=== PATIENT | male | born 1935 | race Caucasian/White ===

== ENCOUNTER → 2016-06-02 | Outpatient (CLI) | payer OTHER ==
[~2016-06-02] MED LIST: ALPHAGAN P100 DROP/5 RIGHT EYE; ASPIR-LOW81 MG PO; Cosopt 0.5% Ophth So RIGHT EYE; Coumadin,Jantoven PO; DIGITEK125 MC2 PO; DIGOX125 MCG PO; FUROSEMIDE20 MG PO; GLIPIZIDE5 MG PO; LATANOPROST2.5 ML RIGHT EYE; LOSARTAN POTASS50 MG PO; METRONIDAZOLE500 MG PO; MIRTAZAPINE15 MG PO; PANTOPRAZOLE SO40 MG PO; TOPROL XL100 MG PO; TRAVATAN Z5 ML BOTH EYES; Toprol XL PO; Vicodin,Norco 5/325 PO; ZOCOR40 MG PO; Zestril,Prinivil PO; Zocor PO
== END | disposition home or self-care (01) ==
LOC: RAD 12:21
PROC: 0W9G3ZZ Drainage of Peritoneal Cavity, Percutaneous Approach (ICD-10-PCS; principal; 2016-06-02)
DX: R18.8 Other ascites (principal)

== ENCOUNTER 2016-08-30 08:43 | Inpatient (IN) | payer OTHER ==
[~2016-08-30] VITALS: Ht 185.4 cm; Wt 63.5 kg
[~2016-08-30 08:43] MED LIST changes: -DELTASONE20 M1 PO; -FUROSEMIDE40 MG PO; -PROAIR HFA8.5 GM IH
[2016-08-30 09:45] LABS: EOSINOPHIL (%) 1.1 % (0-5); EOSINOPHIL COUNT 0.1 K/uL (0-0.3); HEMATOCRIT 29.4 % (38.0-50.0); IMMATURE GRANULOCYTE (%) 0.4 % (0.0-0.7); INSTRUMENT ABS NEUTROPHIL CT 5.9 K/uL; LYMPHOCYTE COUNT 0.5 K/uL (1.0-2.8); MCH 28.9 PG (29.0-34.0); MCHC 29.6 G/DL (30.0-36.0); MCV 97.7 FL (86-99); MEAN PLAT.VOLUME 10.4 uM^3 (9.0-12.4); MONOCYTE (%) 7.3 % (3-12); MONOCYTE COUNT 0.5 K/uL (0-0.8); NEUTROPHIL (%) 83.5 % (45-76); NEUTROPHIL COUNT 5.9 K/uL (1.8-6.4); PLATELET COUNT 158 K/uL (156-360); RBC DIS.WIDTH-CV 16.7 % (11.8-14.6); RBC DIS.WIDTH-SD 58.6 % (39-53); RED BLOOD COUNT 3.01 M/uL (4.00-5.50); WHITE BLOOD COUNT 7.1 K/uL (4.1-10.2)
[2016-08-30 09:54] LABS: CHLORIDE 106 mEq/L (99-109); POTASSIUM 4.8 mEq/L (3.7-5.4); SODIUM 141 mEq/L (136-147)
[2016-08-30 09:55] LABS: INTER. NORMALIZED RATIO 1.4; PROTHROMBIN TIME 13.9 (9.2-11.2); PTT 30.5 (25-32)
[2016-08-30 09:56] LABS: GLUCOSE 161 mg/dL (70-99)
[2016-08-30 09:57] LABS: ANION GAP 16 MEQ/L (2-14)
[2016-08-30 09:58] LABS: TOTAL BILIRUBIN 0.9 mg/dL (0.0-1.0)
[2016-08-30 10:00] LABS: ALKALINE PHOSPHATASE 61 IU/L (3-129); GFR ESTIMATE (CALCULATED) 14 mL/min/
[2016-08-30 10:01] LABS: UREA NITROGEN (BUN) 90 mg/dL (9-23)
[2016-08-30 10:09] LABS: TROP-I INTERPRETATION POSITIVE
[2016-08-30 10:35] LABS: DIGOXIN 2.2 ng/mL (0.8-2.0)
[2016-08-30] MEDS ORDERED: FUROSEMIDE40 MG PO (12:03)
[2016-08-30] MEDS ORDERED: PROAIR HFA8.5 GM IH (12:09)
[2016-08-30] MEDS ORDERED: DELTASONE20 M1 PO (12:11)
[2016-08-30 15:06] VITALS: BP 110/51
[2016-08-30 19:06] LABS: TROP-I INTERPRETATION POSITIVE; TROPONIN-I 1.92 ng/mL (0.0-0.30)
[2016-08-30 19:33] VITALS: BP 136/59
[2016-08-30 23:59] LABS: TROP-I INTERPRETATION POSITIVE; TROPONIN-I 1.75 ng/mL (0.0-0.30)
[2016-08-31] VITALS (10 sets, daily range): BP systolic 90–123; BP diastolic 44–57
[2016-08-31 06:41] LABS: MCH 28.9 PG (29.0-34.0); MCHC 29.6 G/DL (30.0-36.0); MCV 97.7 FL (86-99); MEAN PLAT.VOLUME 9.9 uM^3 (9.0-12.4); NRBC (%) 0.4 /100 WBC (0-0); PLATELET COUNT 119 K/uL (156-360); RBC DIS.WIDTH-CV 16.9 % (11.8-14.6); RBC DIS.WIDTH-SD 58.3 % (39-53); RED BLOOD COUNT 2.66 M/uL (4.00-5.50); WHITE BLOOD COUNT 5.4 K/uL (4.1-10.2)
[2016-08-31 07:07] LABS: ALKALINE PHOSPHATASE 44 IU/L (3-129); ANION GAP 14 MEQ/L (2-14); CHLORIDE 102 MEQ/L (99-109); CHLORIDE 103 MEQ/L (99-109); GFR ESTIMATE (CALCULATED) 13 mL/min/; GLUCOSE 140 mg/dL (70-99); GLUCOSE 142 mg/dL (70-99); POTASSIUM 4.4 MEQ/L (3.7-5.4); POTASSIUM 4.5 MEQ/L (3.7-5.4); SAMPLE HEMOLYSIS CHECK 0; SAMPLE ICTERIC CHECK 0; SAMPLE LIPEMIA CHECK 0; SODIUM 136 MEQ/L (136-147); SODIUM 137 MEQ/L (136-147); UREA NITROGEN (BUN) 86 mg/dL (9-23)
[2016-09-01] VITALS (7 sets, daily range): BP systolic 101–150; BP diastolic 48–69
[2016-09-01 06:44] LABS: EOSINOPHIL (%) 1.8 % (0-5); EOSINOPHIL COUNT 0.1 K/uL (0-0.3); HEMATOCRIT 32.8 % (38.0-50.0); IMMATURE GRANULOCYTE (%) 0.6 % (0.0-0.7); INSTRUMENT ABS NEUTROPHIL CT 3.9 K/uL; LYMPHOCYTE COUNT 0.6 K/uL (1.0-2.8); MCHC 29.6 G/DL (30.0-36.0); MCV 94.8 FL (86-99); MEAN PLAT.VOLUME 10.4 uM^3 (9.0-12.4); MONOCYTE (%) 8.2 % (3-12); MONOCYTE COUNT 0.4 K/uL (0-0.8); NEUTROPHIL (%) 77.6 % (45-76); NEUTROPHIL COUNT 3.9 K/uL (1.8-6.4); PLATELET COUNT 109 K/uL (156-360); RBC DIS.WIDTH-CV 18.7 % (11.8-14.6); RBC DIS.WIDTH-SD 61.5 % (39-53)
[2016-09-01 06:45] LABS: RED BLOOD COUNT 3.46 M/uL (4.00-5.50)
[2016-09-01 07:09] LABS: ALKALINE PHOSPHATASE 48 IU/L (3-129); ANION GAP 15 MEQ/L (2-14); ANION GAP 16 MEQ/L (2-14); CHLORIDE 102 MEQ/L (99-109); CHLORIDE 103 MEQ/L (99-109); GFR ESTIMATE (CALCULATED) 12 mL/min/; GLUCOSE 115 mg/dL (70-99); GLUCOSE 122 mg/dL (70-99); POTASSIUM 4.7 MEQ/L (3.7-5.4); SAMPLE HEMOLYSIS CHECK 0; SAMPLE ICTERIC CHECK 0; SAMPLE LIPEMIA CHECK 0; SODIUM 138 MEQ/L (136-147); UREA NITROGEN (BUN) 88 mg/dL (9-23); UREA NITROGEN (BUN) 92 mg/dL (9-23)
[2016-09-02] VITALS: BP 101/49
[2016-09-02 04:00] VITALS: BP 115/56
[2016-09-02 06:09] LABS: HEMATOCRIT 29.4 % (38.0-50.0); MCH 29.4 PG (29.0-34.0); MCV 91.9 FL (86-99); MEAN PLAT.VOLUME 10.3 uM^3 (9.0-12.4); PLATELET COUNT 104 K/uL (156-360); RBC DIS.WIDTH-CV 19.2 % (11.8-14.6); RBC DIS.WIDTH-SD 61.5 % (39-53); WHITE BLOOD COUNT 5.2 K/uL (4.1-10.2)
[2016-09-02 06:42] LABS: ANION GAP 14 MEQ/L (2-14); CHLORIDE 104 MEQ/L (99-109); GFR ESTIMATE (CALCULATED) 12 mL/min/; GLUCOSE 115 mg/dL (70-99); POTASSIUM 4.1 MEQ/L (3.7-5.4); SAMPLE HEMOLYSIS CHECK 0; SAMPLE ICTERIC CHECK 0; SAMPLE LIPEMIA CHECK 0; SODIUM 136 MEQ/L (136-147); UREA NITROGEN (BUN) 89 mg/dL (9-23)
[2016-09-02 06:44] LABS: ALKALINE PHOSPHATASE 43 IU/L (3-129); ANION GAP 13 MEQ/L (2-14); CHLORIDE 103 MEQ/L (99-109); GFR ESTIMATE (CALCULATED) 11 mL/min/; GLUCOSE 114 mg/dL (70-99); SAMPLE HEMOLYSIS CHECK 0; SAMPLE ICTERIC CHECK 0; SAMPLE LIPEMIA CHECK 0; SODIUM 134 MEQ/L (136-147); UREA NITROGEN (BUN) 89 mg/dL (9-23)
[2016-09-02 06:49] LABS: TOTAL BILIRUBIN 1.3 MG/DL (0.0-1.0)
[2016-09-02 06:57] VITALS: BP 115/56
[2016-09-02 12:26] VITALS: BP 140/63
[2016-09-02 19:32] VITALS: BP 123/57
[2016-09-03 00:06] VITALS: BP 106/55
[2016-09-03 03:49] VITALS: BP 110/55
[2016-09-03 05:29] LABS: EOSINOPHIL (%) 2.1 % (0-5); EOSINOPHIL COUNT 0.1 K/uL (0-0.3); HEMATOCRIT 29.6 % (38.0-50.0); IMMATURE GRANULOCYTE (%) 0.2 % (0.0-0.7); INSTRUMENT ABS NEUTROPHIL CT 4.3 K/uL; LYMPHOCYTE COUNT 0.5 K/uL (1.0-2.8); MCH 29.7 PG (29.0-34.0); MCHC 32.1 G/DL (30.0-36.0); MCV 92.5 FL (86-99); MEAN PLAT.VOLUME 9.6 uM^3 (9.0-12.4); MONOCYTE (%) 7.5 % (3-12); MONOCYTE COUNT 0.4 K/uL (0-0.8); NEUTROPHIL (%) 80.5 % (45-76); NEUTROPHIL COUNT 4.3 K/uL (1.8-6.4); PLATELET COUNT 100 K/uL (156-360); RBC DIS.WIDTH-CV 18.7 % (11.8-14.6); RBC DIS.WIDTH-SD 59.7 % (39-53); WHITE BLOOD COUNT 5.4 K/uL (4.1-10.2)
[2016-09-03 06:01] LABS: ALKALINE PHOSPHATASE 50 IU/L (3-129); ANION GAP 11 MEQ/L (2-14); CHLORIDE 104 MEQ/L (99-109); GFR ESTIMATE (CALCULATED) 11 mL/min/; GLUCOSE 125 mg/dL (70-99); POTASSIUM 4.3 MEQ/L (3.7-5.4); SAMPLE HEMOLYSIS CHECK 0; SAMPLE ICTERIC CHECK 0; SAMPLE LIPEMIA CHECK 0; SODIUM 135 MEQ/L (136-147); UREA NITROGEN (BUN) 91 mg/dL (9-23)
[2016-09-03 06:37] LABS: TOTAL BILIRUBIN 0.9 MG/DL (0.0-1.0)
[2016-09-03 07:30] VITALS: BP 136/63
[2016-09-03 12:23] VITALS: BP 123/60
[2016-09-03 16:13] VITALS: BP 127/60
[2016-09-03 18:50] LABS: ADD MIUA? YES; BILIRUBIN NEGATIVE; BLOOD MODERATE; COLOR YELLOW ((YELLOW)); GLUCOSE (STRIP) NEGATIVE; KETONES NEGATIVE; LEUKOCYTES TRACE; NITRITE NEGATIVE; PROTEIN (STRIP) 30; SPECIFIC GRAVITY 1.009 (1.000-1.030); UROBILINOGEN 0.2 MG/DL (0.2-1.0)
[2016-09-03 19:05] LABS: BACTERIA RARE /HPF; EPITHELIAL CELLS NONE SEEN /HPF; HYALINE CASTS 0-5 /LPF; MUCUS TRACE /LPF; UCUL ADDED? NO; WHITE BLOOD CELLS 0-5 /HPF (0-5)
[2016-09-03 20:00] VITALS: BP 131/62
[2016-09-04] VITALS (7 sets, daily range): BP systolic 128–146; BP diastolic 61–70
[2016-09-04 07:00] LABS: EOSINOPHIL (%) 1.8 % (0-5); EOSINOPHIL COUNT 0.1 K/uL (0-0.3); HEMATOCRIT 30.4 % (38.0-50.0); IMMATURE GRANULOCYTE (%) 0.3 % (0.0-0.7); INSTRUMENT ABS NEUTROPHIL CT 5.2 K/uL; LYMPHOCYTE COUNT 0.4 K/uL (1.0-2.8); MCH 29.1 PG (29.0-34.0); MCHC 31.3 G/DL (30.0-36.0); MONOCYTE (%) 6.3 % (3-12); MONOCYTE COUNT 0.4 K/uL (0-0.8); NEUTROPHIL (%) 84.4 % (45-76); NEUTROPHIL COUNT 5.2 K/uL (1.8-6.4); PLATELET COUNT 108 K/uL (156-360); RBC DIS.WIDTH-CV 18.9 % (11.8-14.6); RBC DIS.WIDTH-SD 59.4 % (39-53); RED BLOOD COUNT 3.27 M/uL (4.00-5.50); WHITE BLOOD COUNT 6.2 K/uL (4.1-10.2)
[2016-09-04 07:52] LABS: ANION GAP 14 MEQ/L (2-14); CHLORIDE 105 MEQ/L (99-109); GFR ESTIMATE (CALCULATED) 12 mL/min/; GLUCOSE 123 mg/dL (70-99); POTASSIUM 4.3 MEQ/L (3.7-5.4); SAMPLE HEMOLYSIS CHECK 0; SAMPLE ICTERIC CHECK 0; SAMPLE LIPEMIA CHECK 0; SODIUM 137 MEQ/L (136-147); UREA NITROGEN (BUN) 86 mg/dL (9-23)
[2016-09-05] VITALS (7 sets, daily range): BP systolic 108–148; BP diastolic 53–70
[2016-09-05 08:08] LABS: ALKALINE PHOSPHATASE 50 IU/L (3-129); ANION GAP 17 MEQ/L (2-14); CHLORIDE 107 MEQ/L (99-109); GFR ESTIMATE (CALCULATED) 15 mL/min/; GLUCOSE 124 mg/dL (70-99); POTASSIUM 4.1 MEQ/L (3.7-5.4); SAMPLE HEMOLYSIS CHECK 0; SAMPLE ICTERIC CHECK 0; SAMPLE LIPEMIA CHECK 0; SODIUM 139 MEQ/L (136-147); UREA NITROGEN (BUN) 83 mg/dL (9-23)
[2016-09-05 08:16] LABS: TOTAL BILIRUBIN 1.5 MG/DL (0.0-1.0)
[2016-09-06 04:21] VITALS: BP 123/56
[2016-09-06 06:09] LABS: HEMATOCRIT 30.6 % (38.0-50.0); MCH 29.2 PG (29.0-34.0); MCV 94.2 FL (86-99); MEAN PLAT.VOLUME 9.8 uM^3 (9.0-12.4); PLATELET COUNT 86 K/uL (156-360); RBC DIS.WIDTH-CV 18.7 % (11.8-14.6); RBC DIS.WIDTH-SD 61.8 % (39-53); RED BLOOD COUNT 3.25 M/uL (4.00-5.50); WHITE BLOOD COUNT 5.5 K/uL (4.1-10.2)
[2016-09-06 06:39] LABS: ALKALINE PHOSPHATASE 42 IU/L (3-129); ANION GAP 13 MEQ/L (2-14); CHLORIDE 108 MEQ/L (99-109); GFR ESTIMATE (CALCULATED) 16 mL/min/; GLUCOSE 122 mg/dL (70-99); POTASSIUM 3.9 MEQ/L (3.7-5.4); SAMPLE HEMOLYSIS CHECK 0; SAMPLE ICTERIC CHECK 0; SAMPLE LIPEMIA CHECK 0; SODIUM 137 MEQ/L (136-147); TOTAL BILIRUBIN 1.3 MG/DL (0.0-1.0); UREA NITROGEN (BUN) 80 mg/dL (9-23)
[2016-09-06 07:26] VITALS: BP 115/58
[2016-09-06 10:44] VITALS: BP 113/57
[2016-09-06 15:06] VITALS: BP 143/65
[2016-09-06 20:15] VITALS: BP 123/58
[2016-09-06 23:33] VITALS: BP 118/56
[2016-09-07 04:20] VITALS: BP 112/56
[2016-09-07 06:19] LABS: EOSINOPHIL (%) 2.7 % (0-5); EOSINOPHIL COUNT 0.1 K/uL (0-0.3); HEMATOCRIT 30.9 % (38.0-50.0); IMMATURE GRANULOCYTE (%) 0.2 % (0.0-0.7); INSTRUMENT ABS NEUTROPHIL CT 4.1 K/uL; LYMPHOCYTE COUNT 0.5 K/uL (1.0-2.8); MCH 28.9 PG (29.0-34.0); MCHC 31.4 G/DL (30.0-36.0); MEAN PLAT.VOLUME 9.9 uM^3 (9.0-12.4); MONOCYTE (%) 9.3 % (3-12); MONOCYTE COUNT 0.5 K/uL (0-0.8); NEUTROPHIL (%) 77.5 % (45-76); NEUTROPHIL COUNT 4.1 K/uL (1.8-6.4); PLATELET COUNT 89 K/uL (156-360); RBC DIS.WIDTH-CV 18.6 % (11.8-14.6); RBC DIS.WIDTH-SD 59.3 % (39-53); RED BLOOD COUNT 3.36 M/uL (4.00-5.50); WHITE BLOOD COUNT 5.3 K/uL (4.1-10.2)
[2016-09-07 06:43] LABS: ANION GAP 10 MEQ/L (2-14); CHLORIDE 109 MEQ/L (99-109); GFR ESTIMATE (CALCULATED) 18 mL/min/; GLUCOSE 132 mg/dL (70-99); POTASSIUM 3.8 MEQ/L (3.7-5.4); SAMPLE HEMOLYSIS CHECK 0; SAMPLE ICTERIC CHECK 0; SAMPLE LIPEMIA CHECK 0; SODIUM 138 MEQ/L (136-147); UREA NITROGEN (BUN) 77 mg/dL (9-23)
[2016-09-07 07:52] VITALS: BP 125/58
[2016-09-07 11:23] VITALS: BP 113/55
[2016-09-07 15:48] VITALS: BP 118/54
[2016-09-07 19:50] VITALS: BP 133/61
[2016-09-08] VITALS: BP 127/59
[2016-09-08 04:00] VITALS: BP 109/53
[2016-09-08 07:15] VITALS: BP 126/61
[2016-09-08 07:56] LABS: ALKALINE PHOSPHATASE 50 IU/L (3-129); ANION GAP 10 MEQ/L (2-14); CHLORIDE 109 MEQ/L (99-109); GFR ESTIMATE (CALCULATED) 21 mL/min/; GLUCOSE 134 mg/dL (70-99); SAMPLE HEMOLYSIS CHECK 0; SAMPLE ICTERIC CHECK 0; SAMPLE LIPEMIA CHECK 0; SODIUM 138 MEQ/L (136-147); UREA NITROGEN (BUN) 72 mg/dL (9-23)
[2016-09-08 08:07] LABS: TOTAL BILIRUBIN 0.7 MG/DL (0.0-1.0)
[2016-09-08 12:01] VITALS: BP 115/56
[2016-09-08] MEDS ORDERED: BICITRA SOLUTI473 ML PO (12:45)
[2016-09-08] MEDS ORDERED: PROTONIX IV40 MG PO (12:47)
[2016-09-08] MEDS ORDERED: LO-DOSE ASPIRIN81 M2 PO (12:48)
[2016-09-15] MEDS ORDERED: LASIX40 MG PO (07:59)
== END 2016-09-08 14:40 | disposition home health service (06) | DRG 281 ==
LOC: EME 08:43 → EDOF 12:44 → 4EAST 12:44
PROVIDERS: Emergency Medicine; Internal Medicine; Internal Medicine Gastroenterology; Internal Medicine Nephrology
PROC: 0W9G3ZZ Drainage of Peritoneal Cavity, Percutaneous Approach (ICD-10-PCS; 2016-08-31)
PROC: 0W9G3ZZ Drainage of Peritoneal Cavity, Percutaneous Approach (ICD-10-PCS; principal; 2016-09-05)
DX: I21.4 Non-ST elevation (NSTEMI) myocardial infarction (principal); N17.9 Acute kidney failure, unspecified; E86.0 Dehydration; T46.0X5A Adverse effect of cardiac-stimulant glycosides and drugs of similar action, initial encounter; E11.9 Type 2 diabetes mellitus without complications; I48.91 Unspecified atrial fibrillation; H40.9 Unspecified glaucoma; I25.10 Atherosclerotic heart disease of native coronary artery without angina pectoris; K74.60 Unspecified cirrhosis of liver; R18.8 Other ascites; K21.9 Gastro-esophageal reflux disease without esophagitis; N18.4 Chronic kidney disease, stage 4 (severe); R60.9 Edema, unspecified; E87.70 Fluid overload, unspecified; N18.9 Chronic kidney disease, unspecified; D64.9 Anemia, unspecified; I73.9 Peripheral vascular disease, unspecified; R00.1 Bradycardia, unspecified; I95.9 Hypotension, unspecified; K92.2 Gastrointestinal hemorrhage, unspecified; M25.519 Pain in unspecified shoulder; E78.5 Hyperlipidemia, unspecified; Z87.891 Personal history of nicotine dependence; Z95.1 Presence of aortocoronary bypass graft
CPT/HCPCS: 71010; 76705; 76770; 80048; 80053; 80069; 80162; 81003; 82436; 82570; 83935; 84133; 84300; 84443; 84484; 85025; 85027; 85610; 85730; 86900; 86901; 86920; 93005; 93306; 97530 GO; 99281; 99285; C9113; J7030; P9016; P9040; P9047

== ENCOUNTER → 2016-08-30 | Outpatient (CLI) | payer OTHER ==
[~2016-08-30] MED LIST changes: +DELTASONE20 M1 PO; +FUROSEMIDE40 MG PO; +PROAIR HFA8.5 GM IH
== END | disposition home or self-care (01) ==
LOC: RAD 07:57
PROC: 0WJG3ZZ Inspection of Peritoneal Cavity, Percutaneous Approach (ICD-10-PCS; principal; 2016-08-30)
DX: R18.8 Other ascites (principal); R00.1 Bradycardia, unspecified; Z53.09 Procedure and treatment not carried out because of other contraindication
CPT/HCPCS: 76705

== ENCOUNTER → 2016-09-15 | Outpatient (CLI) | payer OTHER ==
[~2016-09-15] MED LIST changes: +BICITRA SOLUTI473 ML PO; +DELTASONE20 M1 PO; +FUROSEMIDE40 MG PO; +LASIX40 MG PO; +LO-DOSE ASPIRIN81 M2 PO; +PROAIR HFA8.5 GM IH; +PROTONIX IV40 MG PO
== END | disposition home or self-care (01) ==
LOC: RAD 07:19
PROC: 0W9G3ZZ Drainage of Peritoneal Cavity, Percutaneous Approach (ICD-10-PCS; principal; 2016-09-15)
DX: R18.8 Other ascites (principal)

== ENCOUNTER 2017-06-30 13:29 | Inpatient (IN) | payer OTHER ==
[~2017-06-30] VITALS: Ht 170.2 cm; Wt 73.3 kg
[~2017-06-30 13:29] MED LIST changes: +METOPROLOL SUCC25 MG PO; +REFRESH OPTIVE10 ML LEFT EYE
[2017-06-30 14:11] LABS: BASOPHIL (%) 0.2 % (0-1); EOSINOPHIL (%) 1.2 % (0-5); EOSINOPHIL COUNT 0.1 K/uL (0-0.3); HEMATOCRIT 34.3 % (38.0-50.0); HEMOGLOBIN 10.3 G/DL (12.5-16.6); IMMATURE GRANULOCYTE (%) 0.3 % (0.0-0.7); LYMPHOCYTE COUNT 0.4 K/uL (1.0-2.8); MCH 29.3 PG (29.0-34.0); MCV 97.4 FL (86-99); MONOCYTE (%) 7.3 % (3-12); MONOCYTE COUNT 0.4 K/uL (0-0.8); NEUTROPHIL COUNT 5.1 K/uL (1.8-6.4); PLATELET COUNT 137 K/uL (156-360); RBC DIS.WIDTH-SD 63.6 % (39-53); RED BLOOD COUNT 3.52 M/uL (4.00-5.50)
[2017-06-30 14:16] LABS: INTER. NORMALIZED RATIO 1.2
[2017-06-30 14:19] LABS: PTT 32.8 SEC (25-37)
[2017-06-30 14:20] LABS: ALBUMIN 3.3 g/dL (3.2-4.8); CHLORIDE 103 mEq/L (99-109); POTASSIUM 4.3 mEq/L (3.7-5.4); SODIUM 142 mEq/L (136-147)
[2017-06-30 14:21] LABS: MAGNESIUM 2.4 mg/dL (1.3-2.7)
[2017-06-30 14:22] LABS: GLUCOSE 202 mg/dL (70-99)
[2017-06-30 14:26] LABS: ALKALINE PHOSPHATASE 106 IU/L (3-129); GFR ESTIMATE (CALCULATED) 34 mL/min/ (58.99-99999)
[2017-06-30 14:27] LABS: UREA NITROGEN (BUN) 53 mg/dL (9-23)
[2017-06-30 14:28] LABS: AST (GOT) 15 IU/L (2-34)
[2017-06-30 14:29] LABS: ALT (GPT) 9 IU/L (3-49)
[2017-06-30 14:32] LABS: TROP-I INTERPRETATION NEGATIVE; TROPONIN-I 0.02 ng/mL (0.0-0.30)
[2017-06-30] MEDS ORDERED: ASPIR 8181 M1 PO (16:24)
[2017-06-30] MEDS ORDERED: FUROSEMIDE40 MG PO (16:24)
[2017-06-30] MEDS ORDERED: ALPHAGAN 0100 DROP/5 RIGHT EYE (16:25)
[2017-06-30] MEDS ORDERED: REFRESH OPTIVE10 ML LEFT EYE (16:27)
[2017-06-30 16:39] LABS: APPEARANCE CLEAR ((CLEAR)); BILIRUBIN NEGATIVE; BLOOD NEGATIVE; COLOR YELLOW ((YELLOW)); GLUCOSE (STRIP) NEGATIVE; KETONES NEGATIVE; LEUKOCYTES NEGATIVE; NITRITE NEGATIVE; PROTEIN (STRIP) NEGATIVE; UCUL ADDED? NO; UROBILINOGEN 0.2 MG/DL (0.2-1.0)
[2017-06-30 21:09] LABS: TROP-I INTERPRETATION NEGATIVE; TROPONIN-I 0.03 ng/mL (0.0-0.30)
[2017-07-01 00:12] VITALS: BP 146/82
[2017-07-01 02:23] LABS: HEMATOCRIT 31.4 % (38.0-50.0); HEMOGLOBIN 9.7 G/DL (12.5-16.6); MCH 29.7 PG (29.0-34.0); MCHC 30.9 G/DL (30.0-36.0); PLATELET COUNT 122 K/uL (156-360); RBC DIS.WIDTH-CV 17.8 % (11.8-14.6); RBC DIS.WIDTH-SD 62.1 % (39-53); RED BLOOD COUNT 3.27 M/uL (4.00-5.50); WHITE BLOOD COUNT 5.7 K/uL (4.1-10.2)
[2017-07-01 02:34] LABS: CHLORIDE 102 mEq/L (99-109); POTASSIUM 4.3 mEq/L (3.7-5.4); SODIUM 143 mEq/L (136-147)
[2017-07-01 02:35] LABS: GLUCOSE 126 mg/dL (70-99)
[2017-07-01 02:39] LABS: CREATININE 1.8 mg/dL (0.6-1.3); GFR ESTIMATE (CALCULATED) 38 mL/min/ (58.99-99999)
[2017-07-01 02:40] LABS: UREA NITROGEN (BUN) 53 mg/dL (9-23)
[2017-07-01 02:47] LABS: TROP-I INTERPRETATION NEGATIVE; TROPONIN-I 0.04 ng/mL (0.0-0.30)
[2017-07-01 05:00] VITALS: BP 100/58
[2017-07-01 07:01] VITALS: BP 92/52
[2017-07-01 14:54] LABS: TYPE OF FLUID PLEURAL
[2017-07-01 15:26] LABS: BODY FLUID GLUCOSE 137 MG/DL; BODY FLUID LDH 184 IU/L
[2017-07-01 16:04] LABS: APPEARANCE BLOODY; BODY FLUID EOSINOPHILS 0 % (0-25); BODY FLUID RBC'S 5000 /MM^3 (0-100); BODY FLUID WBC'S 16 /MM^3 (0-500); MONONUCLEAR WBC'S 37 %; POLYNUCLEAR WBC'S 63 % (0-25)
[2017-07-01 16:05] LABS: BODY FLUID PROTEIN < 3.0 G/DL
[2017-07-01 16:16] VITALS: BP 93/50
[2017-07-01 23:53] VITALS: BP 91/52
[2017-07-02] VITALS (8 sets, daily range): BP systolic 80–99; BP diastolic 47–54
[2017-07-02 06:49] LABS: BASOPHIL (%) 0.3 % (0-1); EOSINOPHIL COUNT 0.1 K/uL (0-0.3); HEMATOCRIT 32.9 % (38.0-50.0); HEMOGLOBIN 9.7 G/DL (12.5-16.6); IMMATURE GRANULOCYTE (%) 0.4 % (0.0-0.7); LYMPHOCYTE (%) 6.6 % (15-42); LYMPHOCYTE COUNT 0.5 K/uL (1.0-2.8); MCH 29.5 PG (29.0-34.0); MCHC 29.5 G/DL (30.0-36.0); MONOCYTE (%) 6.9 % (3-12); MONOCYTE COUNT 0.5 K/uL (0-0.8); NEUTROPHIL (%) 84.8 % (45-76); NEUTROPHIL COUNT 5.8 K/uL (1.8-6.4); PLATELET COUNT 136 K/uL (156-360); RBC DIS.WIDTH-CV 17.6 % (11.8-14.6); RED BLOOD COUNT 3.29 M/uL (4.00-5.50); WHITE BLOOD COUNT 6.9 K/uL (4.1-10.2)
[2017-07-02 07:10] LABS: ALKALINE PHOSPHATASE 77 IU/L (3-129); ALT (GPT) 7 IU/L (3-49); AST (GOT) 14 IU/L (2-34); CHLORIDE 98 MEQ/L (99-109); CREATININE 2.4 MG/DL (0.6-1.3); GFR ESTIMATE (CALCULATED) 28 mL/min/ (58.99-99999); GLUCOSE 171 mg/dL (70-99); IRON 53 MCG/DL (35-150); PHOSPHORUS 5.5 mg/dL (2.5-4.9); POTASSIUM 4.6 MEQ/L (3.7-5.4); SODIUM 139 MEQ/L (136-147); TOTAL BILIRUBIN 1.2 MG/DL (0.0-1.0); TOTAL PROTEIN 6.2 G/DL (6.4-8.3); TRANSFERRIN (TIBC) 151.1 mg/dL (215-380); TRANSFERRIN SATUR. 35 % (20-55); UREA NITROGEN (BUN) 54 mg/dL (9-23)
[2017-07-02 13:55] LABS: HEMATOCRIT 31.9 % (38.0-50.0); HEMOGLOBIN 9.6 G/DL (12.5-16.6); MCH 29.9 PG (29.0-34.0); MCHC 30.1 G/DL (30.0-36.0); MCV 99.4 FL (86-99); PLATELET COUNT 138 K/uL (156-360); RBC DIS.WIDTH-CV 17.5 % (11.8-14.6); RBC DIS.WIDTH-SD 64.3 % (39-53); RED BLOOD COUNT 3.21 M/uL (4.00-5.50); WHITE BLOOD COUNT 8.6 K/uL (4.1-10.2)
[2017-07-03] VITALS (7 sets, daily range): BP systolic 81–87; BP diastolic 47–53
[2017-07-03 05:23] LABS: CHLORIDE 97 mEq/L (99-109); POTASSIUM 4.7 mEq/L (3.7-5.4); SODIUM 138 mEq/L (136-147)
[2017-07-03 05:25] LABS: GLUCOSE 138 mg/dL (70-99)
[2017-07-03 05:28] LABS: GFR ESTIMATE (CALCULATED) 21 mL/min/ (58.99-99999); PHOSPHORUS 6.1 mg/dL (2.5-4.9)
[2017-07-03 05:30] LABS: UREA NITROGEN (BUN) 69 mg/dL (9-23)
[2017-07-03 05:34] LABS: CREATININE 3.1 mg/dL (0.6-1.3)
[2017-07-03 13:19] LABS: LACTATE DEHYDROGENASE 133 IU/L (20-246)
[2017-07-04] LABS: CHLORIDE 96 mEq/L (99-109); POTASSIUM 4.5 mEq/L (3.7-5.4); SODIUM 135 mEq/L (136-147)
[2017-07-04 00:02] LABS: GLUCOSE 181 mg/dL (70-99)
[2017-07-04 00:04] LABS: TOTAL BILIRUBIN 0.8 mg/dL (0.0-1.0)
[2017-07-04 00:05] LABS: ALKALINE PHOSPHATASE 92 IU/L (3-129)
[2017-07-04 00:06] LABS: GFR ESTIMATE (CALCULATED) 17 mL/min/ (58.99-99999)
[2017-07-04 00:07] LABS: AST (GOT) 12 IU/L (2-34); UREA NITROGEN (BUN) 74 mg/dL (9-23)
[2017-07-04 00:08] LABS: ALT (GPT) 7 IU/L (3-49); CREATININE 3.7 mg/dL (0.6-1.3)
[2017-07-04 00:09] LABS: LIPASE 36 U/L (1.0-51.0)
[2017-07-04 00:11] LABS: TROP-I INTERPRETATION NEGATIVE; TROPONIN-I 0.08 ng/mL (0.0-0.30)
[2017-07-04 03:25] LABS: BASOPHIL (%) 0.1 % (0-1); EOSINOPHIL (%) 0.1 % (0-5); HEMATOCRIT 30.4 % (38.0-50.0); HEMOGLOBIN 9.1 G/DL (12.5-16.6); IMMATURE GRANULOCYTE (%) 0.3 % (0.0-0.7); LYMPHOCYTE (%) 3.8 % (15-42); LYMPHOCYTE COUNT 0.3 K/uL (1.0-2.8); MCH 29.5 PG (29.0-34.0); MCHC 29.9 G/DL (30.0-36.0); MCV 98.7 FL (86-99); MONOCYTE (%) 5.9 % (3-12); MONOCYTE COUNT 0.5 K/uL (0-0.8); NEUTROPHIL (%) 89.8 % (45-76); NEUTROPHIL COUNT 6.9 K/uL (1.8-6.4); PLATELET COUNT 120 K/uL (156-360); RBC DIS.WIDTH-CV 17.2 % (11.8-14.6); RBC DIS.WIDTH-SD 62.9 % (39-53); RED BLOOD COUNT 3.08 M/uL (4.00-5.50); WHITE BLOOD COUNT 7.7 K/uL (4.1-10.2)
[2017-07-04 03:38] LABS: ALBUMIN 2.9 g/dL (3.2-4.8); CHLORIDE 97 mEq/L (99-109); POTASSIUM 4.7 mEq/L (3.7-5.4); SODIUM 134 mEq/L (136-147)
[2017-07-04 03:39] LABS: ALBUMIN 2.9 g/dL (3.2-4.8)
[2017-07-04 03:40] LABS: CHLORIDE 97 mEq/L (99-109); GLUCOSE 162 mg/dL (70-99); POTASSIUM 4.7 mEq/L (3.7-5.4); SODIUM 135 mEq/L (136-147)
[2017-07-04 03:41] LABS: TOTAL PROTEIN 6.3 g/dL (6.4-8.3)
[2017-07-04 03:42] LABS: GLUCOSE 160 mg/dL (70-99); TOTAL BILIRUBIN 0.8 mg/dL (0.0-1.0)
[2017-07-04 03:44] LABS: ALKALINE PHOSPHATASE 87 IU/L (3-129); CREATININE 3.8 mg/dL (0.6-1.3); GFR ESTIMATE (CALCULATED) 16 mL/min/ (58.99-99999)
[2017-07-04 03:45] LABS: UREA NITROGEN (BUN) 73 mg/dL (9-23)
[2017-07-04 03:46] LABS: AST (GOT) 11 IU/L (2-34); CREATININE 3.8 mg/dL (0.6-1.3); GFR ESTIMATE (CALCULATED) 16 mL/min/ (58.99-99999)
[2017-07-04 03:47] LABS: ALT (GPT) 7 IU/L (3-49); UREA NITROGEN (BUN) 75 mg/dL (9-23)
[2017-07-04 04:05] VITALS: BP 81/55
[2017-07-04 07:30] VITALS: BP 94/51
[2017-07-04 11:28] VITALS: BP 87/49
[2017-07-04 17:09] VITALS: BP 99/54
[2017-07-04 20:17] VITALS: BP 88/52
[2017-07-04 23:54] VITALS: BP 90/50
[2017-07-05 04:13] VITALS: BP 92/50
[2017-07-05 05:40] LABS: HEMATOCRIT 29.3 % (38.0-50.0); HEMOGLOBIN 8.6 G/DL (12.5-16.6); MCH 29.5 PG (29.0-34.0); MCHC 29.4 G/DL (30.0-36.0); MCV 100.3 FL (86-99); PLATELET COUNT 115 K/uL (156-360); RBC DIS.WIDTH-CV 17.5 % (11.8-14.6); RBC DIS.WIDTH-SD 64.3 % (39-53); RED BLOOD COUNT 2.92 M/uL (4.00-5.50); WHITE BLOOD COUNT 7.3 K/uL (4.1-10.2)
[2017-07-05 05:41] LABS: BODY FLUID PH 8.1 (())
[2017-07-05 06:13] LABS: ALBUMIN 2.7 G/DL (3.2-4.8); ALBUMIN 2.8 G/DL (3.2-4.8); ALKALINE PHOSPHATASE 66 IU/L (3-129); ALT (GPT) 7 IU/L (3-49); AST (GOT) 10 IU/L (2-34); CHLORIDE 101 MEQ/L (99-109); CREATININE 4.4 MG/DL (0.6-1.3); GFR ESTIMATE (CALCULATED) 14 mL/min/ (58.99-99999); GLUCOSE 122 mg/dL (70-99); PHOSPHORUS 6.7 mg/dL (2.5-4.9); POTASSIUM 4.8 MEQ/L (3.7-5.4); POTASSIUM 4.9 MEQ/L (3.7-5.4); SODIUM 137 MEQ/L (136-147); TOTAL PROTEIN 5.6 G/DL (6.4-8.3); UREA NITROGEN (BUN) 82 mg/dL (9-23)
[2017-07-05 06:15] LABS: CREATININE 4.5 MG/DL (0.6-1.3); GFR ESTIMATE (CALCULATED) 13 mL/min/ (58.99-99999); TOTAL BILIRUBIN 0.8 MG/DL (0.0-1.0)
[2017-07-05 07:53] VITALS: BP 102/50
[2017-07-05 11:52] VITALS: BP 96/53
[2017-07-05 16:55] VITALS: BP 94/56
[2017-07-05 19:15] VITALS: BP 104/54
[2017-07-06 00:30] VITALS: BP 87/55
[2017-07-06 04:12] VITALS: BP 81/48
[2017-07-06 06:15] LABS: ALBUMIN 2.7 G/DL (3.2-4.8); CHLORIDE 102 MEQ/L (99-109); GFR ESTIMATE (CALCULATED) 12 mL/min/ (58.99-99999); GLUCOSE 100 mg/dL (70-99); PHOSPHORUS 6.6 mg/dL (2.5-4.9); POTASSIUM 4.5 MEQ/L (3.7-5.4); SODIUM 136 MEQ/L (136-147); UREA NITROGEN (BUN) 87 mg/dL (9-23)
[2017-07-06 06:56] VITALS: BP 90/58
[2017-07-06 11:13] VITALS: BP 100/56
[2017-07-06] MEDS ORDERED: PROTONIX40 MG PO (13:24)
[2017-07-06 15:24] VITALS: BP 105/58
== END 2017-07-06 19:11 | disposition hospice, home (50) | DRG 291 ==
LOC: EME 13:29 → EDOF 18:38 → 4EAST 18:38 → 5EAST 18:38 → ENRESERV 18:42 → 5EAST 20:52 → 4EAST 07-02 13:37 → ENRESERV 07-02 13:56 → 4EAST 07-02 14:04 → ENRESERV 07-05 22:10 → ENPENDDIS 07-06 → 5EAST 07-06 00:28 → EDPENDDISTM 07-06 17:00 → 5EAST 07-06 19:11
PROVIDERS: Emergency Medicine; Hospitalist; Internal Medicine; Internal Medicine Nephrology; Radiology Diagnostic Radiology
PROC: 0W9B30Z Drainage of Left Pleural Cavity with Drainage Device, Percutaneous Approach (ICD-10-PCS; principal; 2017-07-01)
DX: I13.0 Hypertensive heart and chronic kidney disease with heart failure and stage 1 through stage 4 chronic kidney disease, or unspecified chronic kidney disease (principal); I50.33 Acute on chronic diastolic (congestive) heart failure; J44.0 Chronic obstructive pulmonary disease with (acute) lower respiratory infection; J18.9 Pneumonia, unspecified organism; J96.01 Acute respiratory failure with hypoxia; J44.1 Chronic obstructive pulmonary disease with (acute) exacerbation; N17.9 Acute kidney failure, unspecified; N18.4 Chronic kidney disease, stage 4 (severe); E11.22 Type 2 diabetes mellitus with diabetic chronic kidney disease; J91.8 Pleural effusion in other conditions classified elsewhere; I95.9 Hypotension, unspecified; K25.5 Chronic or unspecified gastric ulcer with perforation; E11.51 Type 2 diabetes mellitus with diabetic peripheral angiopathy without gangrene; R18.8 Other ascites; I08.1 Rheumatic disorders of both mitral and tricuspid valves; I27.81 Cor pulmonale (chronic); I27.29 Other secondary pulmonary hypertension; D69.59 Other secondary thrombocytopenia; Z66 Do not resuscitate; Z51.5 Encounter for palliative care; R13.10 Dysphagia, unspecified; R63.0 Anorexia; Z68.1 Body mass index [BMI] 19.9 or less, adult; N25.81 Secondary hyperparathyroidism of renal origin; I65.22 Occlusion and stenosis of left carotid artery; I48.2 Chronic atrial fibrillation; R33.9 Retention of urine, unspecified; K74.60 Unspecified cirrhosis of liver; D50.0 Iron deficiency anemia secondary to blood loss (chronic); I25.10 Atherosclerotic heart disease of native coronary artery without angina pectoris; E78.5 Hyperlipidemia, unspecified; R63.4 Abnormal weight loss; I47.1 Supraventricular tachycardia; I25.2 Old myocardial infarction; K57.90 Diverticulosis of intestine, part unspecified, without perforation or abscess without bleeding; K64.8 Other hemorrhoids; K29.70 Gastritis, unspecified, without bleeding; K31.89 Other diseases of stomach and duodenum; R19.7 Diarrhea, unspecified; I49.3 Ventricular premature depolarization; J98.11 Atelectasis; K31.4 Gastric diverticulum; Z85.828 Personal history of other malignant neoplasm of skin; Z87.891 Personal history of nicotine dependence; Z95.820 Peripheral vascular angioplasty status with implants and grafts; Z82.49 Family history of ischemic heart disease and other diseases of the circulatory system; Z83.3 Family history of diabetes mellitus
CPT/HCPCS: 36415; 71045; 71046; 71250; 74176; 76942; 80048; 80053; 80061; 80069; 81003; 82043; 82570; 82945; 82948; 83036; 83540; 83605; 83615; 83615 91; 83690; 83735; 83880; 83970; 83986 90; 84075; 84100; 84157; 84466; 84484; 84550; 85025; 85027; 85610; 85730; 87040; 87070; 87075; 87205; 87449; 88108; 88305; 88312; 89051; 92610 GN; 93005; 93306; 93970; 94640; 94640 76; 94760; 94799; 99281; 99285; A6214; C9113; J0295; J0456; J1644; J1815; J1940; J2405; J2543; J7030; J7050